=== PATIENT | female | born 1965 | race Hispanic/Latino ===

== ENCOUNTER 2018-10-15 19:32 | Observation (INO) | payer BC, OTHER ==
--- NOTE | 2018-10-15 20:24 | ED PDOC ---
Arrival/HPI - General Chief Complaint: Seizure Time Seen by Provider: 10/15/18 19:35 Historian: Patient - History of Present Illness Narrative History of Present Illness (Text): 10/15/18 19:30 53 year old female, whose past medical history includes Anxiety, Depression, and hypertension, presents to the emergency department after having a seizure at her physician's office. Patient has no physical complaints at this time. Patient denies any seizure activity in the past. Patient states she is under a lot of stress and reports a history of PTSD. Patient denies any fever, chills, chest pain, shortness of breath, nausea, vomiting, diarrhea, urinary symptoms, urinary incontinence, back pain, neck pain, headache, dizziness, SI/HI, visual/auditory hallucination, or any other complaints. PMD: Dr. Echevarria Symptom Onset: Sudden Symptom Course: Resolved Activities at Onset: Light Context: Other (PMD office) Past Medical History - Provider Review Nursing Documentation Reviewed: Yes - Infectious Disease Hx of Infectious Diseases: None - Cardiac Hx Hypertension: Yes - Pulmonary Hx Tuberculosis: No - Neurological HX Cerebrovascular Accident: No Hx Seizures: No - HEENT Hx HEENT Disorder: No Hx Blind: No - Renal Hx Renal Disorder: No - Endocrine/Metabolic Hx Endocrine Disorders: No - Hematological/Oncological Hx Cancer: No - Integumentary Hx Dermatological Disorder: No - Musculoskeletal/Rheumatological Hx Musculoskeletal Disorders: No - Gastrointestinal Hx Gastrointestinal Disorders: No - Genitourinary/Gynecological Hx Sexually Transmitted Diseases: No - Psychiatric Hx Anxiety: Yes Hx Depression: Yes Hx Substance Use: No - Surgical History Hx Arteriovenous Shunt: No - Anesthesia Hx Anesthesia: No Family/Social History - Physician Review Nursing Documentation Reviewed: Yes Family/Social History: No Known Family HX Smoking Status: Never Smoked Hx Alcohol Use: No Hx Substance Use: No Allergies/Home Meds Allergies/Adverse Reactions: Allergies codeine Allergy (Verified 10/15/18 19:45) RASH Home Medications: Home Meds Medication Instructions Recorded Confirmed ALPRAZolam [Xanax] 1 mg PO BID PRN 10/16/18 10/16/18 Desvenlafaxine Succinate [Pristiq 50 mg PO DAILY 10/16/18 10/16/18 ER] LORazepam [Ativan] 2 mg PO BID 10/16/18 10/16/18 Lisdexamfetamine Dimesylate 60 mg PO DAILY 10/16/18 10/16/18 [Vyvanse] hydroCHLOROthiazide [Hydrodiuril] 25 mg PO DAILY 10/16/18 10/16/18 Review of Systems - Physician Review All systems were reviewed & negative as marked: Yes - Review of Systems Constitutional: absent: Fevers, Other (Chills) Respiratory: absent: SOB Cardiovascular: absent: Chest Pain Gastrointestinal: absent: Diarrhea, Nausea, Vomiting Genitourinary Female: absent: Dysuria, Frequency, Hematuria, Other (urinary incontinence) Musculoskeletal: absent: Back Pain, Neck Pain Neurological: Seizure. absent: Headache, Dizziness Psychiatric: absent: Suicidal Ideation (/HI), Other (visual/auditory hallucination) Physical Exam Vital Signs Reviewed: Yes Vital Signs Temp Pulse Resp BP Pulse Ox 10/15/18 20:13 97.7 F 118 H 18 91/60 L 95 Temperature: Afebrile Blood Pressure: Hypotensive Pulse: Tachycardic Respiratory Rate: Normal Appearance: Positive for: Well-Appearing, Non-Toxic, Comfortable Pain Distress: None Mental Status: Positive for: Alert and Oriented X 3 - Systems Exam Head: Present: Atraumatic, Normocephalic Pupils: Present: PERRL Extroacular Muscles: Present: EOMI Conjunctiva: Present: Normal Mouth: Present: Moist Mucous Membranes, Normal Tounge. No: Other (no tongue bite) Neck: Present: Normal Range of Motion Respiratory/Chest: Present: Clear to Auscultation, Good Air Exchange. No: Respiratory Distress, Accessory Muscle Use Cardiovascular: Present: Regular Rate and Rhythm, Normal S1, S2. No: Murmurs Abdomen: No: Tenderness, Distention, Peritoneal Signs Back: Present: Normal Inspection Upper Extremity: Present: Normal Inspection. No: Cyanosis, Edema Lower Extremity: Present: Normal Inspection. No: Edema Neurological: Present: GCS=15, CN II-XII Intact, Speech Normal Skin: Present: Warm, Dry, Normal Color. No: Rashes Psychiatric: Present: Alert, Oriented x 3, Normal Insight, Normal Concentration Medical Decision Making ED Course and Treatment: 10/15/18 19:30 Impression: 53 year old female presents after having a witness seizure at her physician's office. Plan: -- CT head w/o contrast -- Labs -- Urinalysis -- Urine Culture -- Reassess and disposition Prior Visits: Notes and results from previous visits were reviewed. Progress Notes: EKG shows Sinus Tachycardia at 105 BPM. Interpreted by me. EXAM: CT Head without Intravenous Contrast. Electronically signed on Oct 15, 2018 10:20:29 PM EST by: Prince Joshi M.D. IMPRESSION: 1. No acute intracranial abnormality. 10/15/18 22:[address] Echevarria who is aware and agrees with the plan. Accepts patient into his service and request Dr. Whiting for consult tomorrow morning. - Lab Interpretations I have reviewed the lab results: Yes - RAD Interpretation Radiology Orders: 10/15/18 19:45 HEAD W/O CONTRAST [CT] Stat Rides Supervisor: Radiologist - Scribe Statement The provider has reviewed the documentation as recorded by the Mohanibe Blayne Taveras Provider Scribe Attestation: All medical record entries made by the Scribe were at my direction and personally dictated by me. I have reviewed the chart and agree that the record accurately reflects my personal performance of the history, physical exam, medical decision making, and the department course for this patient. I have also personally directed, reviewed, and agree with the discharge instructions and disposition. Disposition/Present on Arrival - Present on Arrival Any Indicators Present on Arrival: No History of DVT/PE: No History of Uncontrolled Diabetes: No Urinary Catheter: No History of Decub. Ulcer: No History Surgical Site Infection Following: None - Disposition Have Diagnosis and Disposition been Completed?: Yes Diagnosis: Seizure Disposition: HOSPITALIZED Disposition Time: 22:20 Condition: STABLE
[2018-10-15 20:27] LABS: BASO # 0.02 K/mm3 (0.0-2.0); BASO % 0.4 % (0.0-3.0); EOS # 0.1 (0.0-0.7); EOS % 2.7 % (1.5-5.0); GRAN # 3.51 (1.4-6.5); GRAN % 68.9 % (50.0-68.0); HEMOGLOBIN 14.1 g/dL (12.0-16.0); LYMPH % 19.8 % (22.0-35.0); MEAN CORPUSCULAR HEMOGLOBIN 31.7 pg (25.0-35.0); MEAN CORPUSCULAR HGB CONC 34.1 g/dl (31.0-37.0); MONO # 0.4 (0.1-0.6); MONO % 8.2 % (1.0-6.0); RBC 4.45 10^6/uL (3.5-6.1); RED CELL DISTRIBUTION WIDTH 13.8 % (11.5-14.5); WHITE BLOOD COUNT 5.1 10^3/uL (4.5-11.0)
[2018-10-15 20:39] LABS: ALB/GLOB RATIO 1.2 (1.1-1.8); ALBUMIN 4.1 g/dL (3.0-4.8); ALT/SGPT 94 U/L (7-56); AST/SGOT 66 U/L (14-36); BLOOD UREA NITROGEN 17 mg/dL (7-21); CALCIUM 9.6 mg/dL (8.4-10.5); GFR NON-AFRICAN AMERICAN 58; LIPASE 162 U/L (23-300)
[2018-10-15 22:08] LABS: BARBITURATES, UR NEGATIVE (NEGATIVE); BENZODIAZEPINES, UR NEGATIVE (NEGATIVE); OPIATES, UR NEGATIVE (NEGATIVE); PHENCYCLIDINE, UR NEGATIVE (NEGATIVE)
[2018-10-15] MEDS: Sodium Chloride 0.9% 1,000 ML IV SCH (23:15)
[2018-10-16 00:36] LABS: PH,URINE 6.5 (4.7-8.0); URINE BILIRUBIN NEGATIVE (NEGATIVE); URINE BLOOD NEGATIVE (NEGATIVE); URINE GLUCOSE (UA) NEGATIVE (NEGATIVE); URINE LEUKOCYTE ESTERASE NEGATIVE Leu/uL (NEGATIVE); URINE PROTEIN NEGATIVE mg/dL (<30 mg/dL); URINE UROBILINOGEN 0.2 E.U./dL (<1 E.U./dL)
[2018-10-16 00:39] LABS: URINE APPEARANCE SL CLOUDY (CLEAR); URINE COLOR YELLOW (YELLOW)
[2018-10-16 04:50] VITALS: BMI 23.2
[2018-10-16 05:19] VITALS: RESP 18; O2SAT 94
--- NOTE | 2018-10-16 08:17 | CARD ---
APPROVED REPORT Date of service: 10/15/2018 EKG Measurement Heart [id number] <Conclusion> Sinus tachycardia Possible Left atrial enlargement Left posterior fascicular block Abnormal ECG
[2018-10-16] MEDS: Sodium Chloride 0.9% 1,000 ML IV SCH ×2 (08:18→17:23)
[2018-10-16] MEDS ORDERED: DESVENLAFAXINE SUCCINATE 50 MG PO SCH (10:15)
[2018-10-16 11:05] LABS: HEMOGLOBIN 12.6 g/dL (12.0-16.0); MEAN CELL VOLUME 92.7 fl (80.0-105.0); MEAN CORPUSCULAR HEMOGLOBIN 31.7 pg (25.0-35.0); MEAN CORPUSCULAR HGB CONC 34.1 g/dl (31.0-37.0); MEAN PLATELET VOLUME 9.6 fl (7.0-11.0); RBC 3.98 10^6/uL (3.5-6.1); RED CELL DISTRIBUTION WIDTH 13.7 % (11.5-14.5)
--- NOTE | 2018-10-16 11:46 | CT ---
Date of service: 10/15/2018 PROCEDURE: CT HEAD WITHOUT CONTRAST. HISTORY: seizure r/o ICH COMPARISON: None available. TECHNIQUE: Axial computed tomography images were obtained through the head/brain without intravenous contrast. Radiation dose: Total exam DLP = 1041.45 mGy-cm. This CT exam was performed using one or more of the following dose reduction techniques: Automated exposure control, adjustment of the mA and/or kV according to patient size, and/or use of iterative reconstruction technique. FINDINGS: HEMORRHAGE: No intracranial hemorrhage. BRAIN: No mass effect or edema. No atrophy or chronic microvascular ischemic changes. VENTRICLES: Unremarkable. No hydrocephalus. CALVARIUM: Unremarkable. PARANASAL SINUSES: Unremarkable as visualized. No significant inflammatory changes. MASTOID AIR CELLS: Unremarkable as visualized. No inflammatory changes. OTHER FINDINGS: None. IMPRESSION: Normal CT of the Head. The preliminary findings for this examination were reported by [facility] at 10:29 p.m. on 10/15/2018. There is concurrence of this report with the preliminary findings.
[2018-10-16 11:47] LABS: ALB/GLOB RATIO 1.1 (1.1-1.8); ALBUMIN 3.2 g/dL (3.0-4.8); ALT/SGPT 73 U/L (7-56); AST/SGOT 84 U/L (14-36); BLOOD UREA NITROGEN 24 mg/dL (7-21); CALCIUM 8.4 mg/dL (8.4-10.5); GFR NON-AFRICAN AMERICAN > 60
[2018-10-16 11:51] LABS: TROPONIN I < 0.01 ng/mL
--- NOTE | 2018-10-16 14:21 | CP.PCM.CON ---
History of Present Illness - History of Present Illness History of Present Illness: 53 year old female with PMH of anxiety, depression, HTN, history of drug use as per PMD was sent to the ED because of an apparent witnessed seizure while in her physician's office. The patient does not recall what happened. The patient states she has never had seizures before. She denies headache or dizziness, no neck pain, no SOB, no cough or rhinorrhea, no sore throat, no abdominal pain, no chest pain, no dysphagia, no diarrhea, no dysuria. Because of history of drug use, Infectious diseases consult is requested to rule out infection. The patient is not volunteering currently any use of drugs but as per PMD, patient has history of drug use. Review of Systems - Review of Systems All systems: reviewed and no additional remarkable complaints except (as per HPI) Past Patient History - Infectious Disease Hx of Infectious Diseases: None - Past Social History Smoking Status: Never Smoked - CARDIAC Hx Hypertension: Yes - PULMONARY Hx Tuberculosis: No - NEUROLOGICAL HX Cerebrovascular Accident: No Hx Seizures: No - HEENT Hx HEENT Problems: No Hx Blind: No - RENAL Hx Chronic Kidney Disease: No - ENDOCRINE/METABOLIC Hx Endocrine Disorders: No - HEMATOLOGICAL/ONCOLOGICAL Hx Cancer: No - INTEGUMENTARY Hx Dermatological Problems: No - MUSCULOSKELETAL/RHEUMATOLOGICAL Hx Musculoskeletal Disorders: No - GASTROINTESTINAL Hx Gastrointestinal Disorders: No - GENITOURINARY/GYNECOLOGICAL Hx Sexually Transmitted Disorders: No - PSYCHIATRIC Hx Anxiety: Yes Hx Depression: Yes Hx Substance Use: No - SURGICAL HISTORY Hx Arteriovenous Shunt: No - ANESTHESIA Hx Anesthesia: No Meds Allergies/Adverse Reactions: Allergies Allergy/AdvReac Type Severity Reaction Status Date / Time codeine Allergy RASH Verified 10/15/18 19:45 - Medications Medications: Current Medications Sodium Chloride (Sodium Chloride 0.9%) 1,000 mls @ 125 mls/hr IV .Q8H MIAN Last Admin: 10/16/18 08:18 Dose: 125 mls/hr Lorazepam (Ativan) 2 mg PO BID MIAN; Protocol Last Admin: 10/16/18 10:35 Dose: 2 mg Non-Formulary Medication (Desvenlafaxine Succinate [Pristiq]) 50 mg PO DAILY MIAN Physical Exam - Constitutional Appears: Chronically Ill - Head Exam Head Exam: NORMAL INSPECTION - Neck Exam Neck exam: Negative for: Lymphadenopathy, Meningismus - Respiratory Exam Respiratory Exam: absent: Rales, Rhonchi - Cardiovascular Exam Cardiovascular Exam: +S1, +S2 - GI/Abdominal Exam GI & Abdominal Exam: Soft. absent: Tenderness Results - Vital Signs Recent Vital Signs: Last Vital Signs Temp 97.8 F 10/16/18 05:18 Pulse 95 H 10/16/18 06:00 Resp 18 10/16/18 05:18 BP 99/62 L 10/16/18 05:18 Pulse Ox 94 L 10/16/18 05:18 - Labs Result Diagrams: 10/16/18 10:45 10/16/18 10:45 Labs: Laboratory Results - last 24 hr 10/15/18 10/15/18 10/15/18 20:21 20:21 20:21 WBC 5.1 RBC 4.45 Hgb 14.1 Hct 41.4 MCV 93.0 MCH 31.7 MCHC 34.1 RDW 13.8 Plt Count 218 MPV 10.0 Gran % 68.9 H Lymph % (Auto) 19.8 L [place] % (Auto) 8.2 H Eos % (Auto) 2.7 Baso % (Auto) 0.4 Gran # 3.51 Lymph # (Auto) 1.0 L [place] # (Auto) 0.4 Eos # (Auto) 0.1 Baso # (Auto) 0.02 Sodium 136 Potassium 3.6 Chloride 101 Carbon Dioxide 25 Anion Gap 14 BUN 17 Creatinine 1.0 Est GFR ( Amer) > 60 Est GFR (Non-Af Amer) 58 Random Glucose 187 H Calcium 9.6 Phosphorus 3.5 Magnesium 1.6 L Total Bilirubin 0.4 AST 66 H ALT 94 H Alkaline Phosphatase 77 Ammonia Total Protein 7.6 Albumin 4.1 Globulin 3.5 Albumin/Globulin Ratio 1.2 Lipase 162 Urine Color Urine Appearance Urine pH Ur Specific [place] Urine Protein Urine Glucose (UA) Urine Ketones Urine Blood Urine Nitrate Urine Bilirubin Urine Urobilinogen Ur Leukocyte Esterase Urine Opiates Screen Urine Methadone Screen Ur Barbiturates Screen Ur Phencyclidine Scrn Ur Amphetamines Screen U Benzodiazepines Scrn U Oth Cocaine Metabols U Cannabinoids Screen Alcohol, Quantitative < 10 10/15/18 10/15/18 10/15/18 20:48 21:35 21:39 WBC RBC Hgb Hct MCV MCH MCHC RDW Plt Count MPV Gran % Lymph % (Auto) [place] % (Auto) Eos % (Auto) Baso % (Auto) Gran # Lymph # (Auto) [place] # (Auto) Eos # (Auto) Baso # (Auto) Sodium Potassium Chloride Carbon Dioxide Anion Gap BUN Creatinine Est GFR ( Amer) Est GFR (Non-Af Amer) Random Glucose Calcium Phosphorus Magnesium Total Bilirubin AST ALT Alkaline Phosphatase Ammonia 21 Total Protein Albumin Globulin Albumin/Globulin Ratio Lipase Urine Color Yellow Urine Appearance Sl cloudy Urine pH 6.5 Ur Specific [place] 1.020 Urine Protein Negative Urine Glucose (UA) Negative Urine Ketones Negative Urine Blood Negative Urine Nitrate Negative Urine Bilirubin Negative Urine Urobilinogen 0.2 Ur Leukocyte Esterase Negative Urine Opiates Screen Negative Urine Methadone Screen Negative Ur Barbiturates Screen Negative Ur Phencyclidine Scrn Negative Ur Amphetamines Screen Positive H U Benzodiazepines Scrn Negative U Oth Cocaine Metabols Negative U Cannabinoids Screen Negative Alcohol, Quantitative 10/16/18 10:45 WBC 5.0 RBC 3.98 Hgb 12.6 Hct 36.9 MCV 92.7 MCH 31.7 MCHC 34.1 RDW 13.7 Plt Count 214 MPV 9.6 Gran % Lymph % (Auto) [place] % (Auto) Eos % (Auto) Baso % (Auto) Gran # Lymph # (Auto) [place] # (Auto) Eos # (Auto) Baso # (Auto) Sodium Potassium Chloride Carbon Dioxide Anion Gap BUN Creatinine Est GFR ( Amer) Est GFR (Non-Af Amer) Random Glucose Calcium Phosphorus Magnesium Total Bilirubin AST ALT Alkaline Phosphatase Ammonia Total Protein Albumin Globulin Albumin/Globulin Ratio Lipase Urine Color Urine Appearance Urine pH Ur Specific [place] Urine Protein Urine Glucose (UA) Urine Ketones Urine Blood Urine Nitrate Urine Bilirubin Urine Urobilinogen Ur Leukocyte Esterase Urine Opiates Screen Urine Methadone Screen Ur Barbiturates Screen Ur Phencyclidine Scrn Ur Amphetamines Screen U Benzodiazepines Scrn U Oth Cocaine Metabols U Cannabinoids Screen Alcohol, Quantitative Assessment & Plan - Assessment and Plan (Free Text) Plan: Assessment Currently no evidence of bacterial infection, no SIRS as well anxiety depression HTN apparent history of drug use as per PMD Plan monitor off antibiotics; will follow up blood, urine cx, CXR will check HIV test follow up Neurology evaluation and recommendations for the seizures; follow up brain MRI results
[2018-10-16] MEDS ORDERED: Magnesium Sulfate 2 GM in Sodium Chloride 0.9% 100 ML IV ONE (14:52)
[2018-10-16] MEDS ORDERED: Magnesium Sulfate 2 GM in 50 ml Water IVPB ONE (15:00)
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
--- NOTE | 2018-10-16 15:50 | CP.PCM.CON ---
History of Present Illness - History of Present Illness History of Present Illness: Neurology Consultation Note: Consult requested by Dr. Echevarria Ms. Jones is a 53-year-old woman with a past medical history of previous IVDA, diagnosed with PTSD with nightmares, HTN, who is on Vyvanse for ADD and takes 2 mg of Ativan Q 12 for anxiety and was at Dr. Echevarria's office, had a syncopal episode with hypotension, followed by 3 seizure-like episodes. The patient was brought to the ED, where she did not have any more seizures. Labs were essentially unremarkable, except she had slightly elevated LFTs and her utox was positive for amphetamine, but negative for benzos. Past Patient History - Infectious Disease Hx of Infectious Diseases: None - Past Social History Smoking Status: Never Smoked - CARDIAC Hx Hypertension: Yes - PULMONARY Hx Tuberculosis: No - NEUROLOGICAL HX Cerebrovascular Accident: No Hx Seizures: No - HEENT Hx HEENT Problems: No Hx Blind: No - RENAL Hx Chronic Kidney Disease: No - ENDOCRINE/METABOLIC Hx Endocrine Disorders: No - HEMATOLOGICAL/ONCOLOGICAL Hx Cancer: No - INTEGUMENTARY Hx Dermatological Problems: No - MUSCULOSKELETAL/RHEUMATOLOGICAL Hx Musculoskeletal Disorders: No - GASTROINTESTINAL Hx Gastrointestinal Disorders: No - GENITOURINARY/GYNECOLOGICAL Hx Sexually Transmitted Disorders: No - PSYCHIATRIC Hx Anxiety: Yes Hx Depression: Yes Hx Substance Use: No - SURGICAL HISTORY Hx Arteriovenous Shunt: No - ANESTHESIA Hx Anesthesia: No Meds Allergies/Adverse Reactions: Allergies Allergy/AdvReac Type Severity Reaction Status Date / Time codeine Allergy RASH Verified 10/15/18 19:45 - Medications Medications: Current Medications Sodium Chloride (Sodium Chloride 0.9%) 1,000 mls @ 125 mls/hr IV .Q8H IMAN Last Admin: 10/16/18 08:18 Dose: 125 mls/hr Magnesium Sulfate (Magnesium Sulfate 2 Gm/50 Ml Water) 2 gm in 50 mls @ 50 mls/hr IVPB ONCE ONE Stop: 10/16/18 15:59 Lorazepam (Ativan) 2 mg PO BID [facility]; Protocol Last Admin: 10/16/18 10:35 Dose: 2 mg Magnesium Oxide (Mag-Ox) 400 mg PO BID [facility] Non-Formulary Medication (Desvenlafaxine Succinate [Pristiq]) 50 mg PO DAILY [facility] Physical Exam - Constitutional Appears: Well - Head Exam Head Exam: ATRAUMATIC, NORMAL INSPECTION, NORMOCEPHALIC - Eye Exam Eye Exam: EOMI, Normal appearance, PERRL Pupil Exam: NORMAL ACCOMODATION, PERRL - ENT Exam ENT Exam: Mucous Membranes Moist, Normal Exam - Neck Exam Neck exam: Positive for: Normal Inspection - Respiratory Exam Respiratory Exam: Clear to Auscultation Bilateral, NORMAL BREATHING PATTERN - Cardiovascular Exam Cardiovascular Exam: REGULAR RHYTHM, +S1, +S2 - GI/Abdominal Exam GI & Abdominal Exam: Normal Bowel Sounds, Soft. absent: Tenderness - Rectal Exam Rectal Exam: Deferred - Extremities Exam Extremities exam: Positive for: normal inspection - Back Exam Back exam: NORMAL INSPECTION - Neurological Exam Neurological exam: Alert, CN II-XII Intact, Normal Gait, Oriented x3, Reflexes Normal - Psychiatric Exam Psychiatric exam: Normal Affect, Normal Mood - Skin Skin Exam: Dry, Intact, Normal Color, Warm Results - Vital Signs Recent Vital Signs: Last Vital Signs Temp 97.7 F 10/16/18 11:54 Pulse 77 10/16/18 11:54 Resp 18 10/16/18 11:54 BP 96/65 L 10/16/18 11:54 Pulse Ox 94 L 10/16/18 05:18 - Labs Result Diagrams: 10/16/18 10:45 10/16/18 10:45 Labs: Laboratory Results - last 24 hr 10/15/18 10/15/18 10/15/18 20:21 20:21 20:21 WBC 5.1 RBC 4.45 Hgb 14.1 Hct 41.4 MCV 93.0 MCH 31.7 MCHC 34.1 RDW 13.8 Plt Count 218 MPV 10.0 Gran % 68.9 H Lymph % (Auto) 19.8 L [place] % (Auto) 8.2 H Eos % (Auto) 2.7 Baso % (Auto) 0.4 Gran # 3.51 Lymph # (Auto) 1.0 L [place] # (Auto) 0.4 Eos # (Auto) 0.1 Baso # (Auto) 0.02 D-Dimer, Quantitative Sodium 136 Potassium 3.6 Chloride 101 Carbon Dioxide 25 Anion Gap 14 BUN 17 Creatinine 1.0 Est GFR ( Amer) > 60 Est GFR (Non-Af Amer) 58 Random Glucose 187 H Calcium 9.6 Phosphorus 3.5 Magnesium 1.6 L Total Bilirubin 0.4 AST 66 H ALT 94 H Alkaline Phosphatase 77 Ammonia Troponin I Total Protein 7.6 Albumin 4.1 Globulin 3.5 Albumin/Globulin Ratio 1.2 Lipase 162 Urine Color Urine Appearance Urine pH Ur Specific [place] Urine Protein Urine Glucose (UA) Urine Ketones Urine Blood Urine Nitrate Urine Bilirubin Urine Urobilinogen Ur Leukocyte Esterase Urine Opiates Screen Urine Methadone Screen Ur Barbiturates Screen Ur Phencyclidine Scrn Ur Amphetamines Screen U Benzodiazepines Scrn U Oth Cocaine Metabols U Cannabinoids Screen Alcohol, Quantitative < 10 10/15/18 10/15/18 10/15/18 20:48 21:35 21:39 WBC RBC Hgb Hct MCV MCH MCHC RDW Plt Count MPV Gran % Lymph % (Auto) [place] % (Auto) Eos % (Auto) Baso % (Auto) Gran # Lymph # (Auto) [place] # (Auto) Eos # (Auto) Baso # (Auto) D-Dimer, Quantitative Sodium Potassium Chloride Carbon Dioxide Anion Gap BUN Creatinine Est GFR ( Amer) Est GFR (Non-Af Amer) Random Glucose Calcium Phosphorus Magnesium Total Bilirubin AST ALT Alkaline Phosphatase Ammonia 21 Troponin I Total Protein Albumin Globulin Albumin/Globulin Ratio Lipase Urine Color Yellow Urine Appearance Sl cloudy Urine pH 6.5 Ur Specific [place] 1.020 Urine Protein Negative Urine Glucose (UA) Negative Urine Ketones Negative Urine Blood Negative Urine Nitrate Negative Urine Bilirubin Negative Urine Urobilinogen 0.2 Ur Leukocyte Esterase Negative Urine Opiates Screen Negative Urine Methadone Screen Negative Ur Barbiturates Screen Negative Ur Phencyclidine Scrn Negative Ur Amphetamines Screen Positive H U Benzodiazepines Scrn Negative U Oth Cocaine Metabols Negative U Cannabinoids Screen Negative Alcohol, Quantitative 10/16/18 10/16/18 10/16/18 10:45 10:45 13:40 WBC 5.0 RBC 3.98 Hgb 12.6 Hct 36.9 MCV 92.7 MCH 31.7 MCHC 34.1 RDW 13.7 Plt Count 214 MPV 9.6 Gran % Lymph % (Auto) [place] % (Auto) Eos % (Auto) Baso % (Auto) Gran # Lymph # (Auto) [place] # (Auto) Eos # (Auto) Baso # (Auto) D-Dimer, Quantitative 201 Sodium 137 Potassium 3.7 Chloride 102 Carbon Dioxide 30 Anion Gap 8 L BUN 24 H Creatinine 0.8 Est GFR ( Amer) > 60 Est GFR (Non-Af Amer) > 60 Random Glucose 98 Calcium 8.4 Phosphorus Magnesium Total Bilirubin 0.2 AST 84 H D ALT 73 H Alkaline Phosphatase 65 Ammonia Troponin I < 0.01 Total Protein 6.2 Albumin 3.2 Globulin 3.0 Albumin/Globulin Ratio 1.1 Lipase Urine Color Urine Appearance Urine pH Ur Specific [place] Urine Protein Urine Glucose (UA) Urine Ketones Urine Blood Urine Nitrate Urine Bilirubin Urine Urobilinogen Ur Leukocyte Esterase Urine Opiates Screen Urine Methadone Screen Ur Barbiturates Screen Ur Phencyclidine Scrn Ur Amphetamines Screen U Benzodiazepines Scrn U Oth Cocaine Metabols U Cannabinoids Screen Alcohol, Quantitative Assessment & Plan (1) Seizure Assessment and Plan: Likely due to benzodiazepine withdrawal and Vyvanse lowering seizure threshold. However, MRI of the brain will be evaluated and EEG will be ordered. The EEG can also be done as an outpatient if the MRI is normal. The patient is now at baseline. I recommend starting a longer acting benzodiazepine to avoid sudden withdrawal. I also recommend stopping, or at least lowering the dose of Vyvance by psychiatry. Will start klonapin 0.5 mg Q12 to be titrated up or down by psychiatry as needed. Thank you for this consultation. Status: Acute
[2018-10-16 17:23] VITALS: BP 124/72; TEMP 97.6
--- NOTE | 2018-10-16 17:23 | RAD ---
Date of service: 10/16/2018 HISTORY: rule out pneumonia COMPARISON: No prior. FINDINGS: LUNGS: No active pulmonary disease. PLEURA: No significant pleural effusion identified, no pneumothorax apparent. CARDIOVASCULAR: No aortic atherosclerotic calcification present. Normal cardiac size. No pulmonary vascular congestion. OSSEOUS STRUCTURES: No significant abnormalities. VISUALIZED UPPER ABDOMEN: Normal. OTHER FINDINGS: None. IMPRESSION: No active disease.
[2018-10-16] MEDS ORDERED: Magnesium Oxide 400 mg Tab UD PO SCH (18:00)
[2018-10-16 19:10] VITALS: PULSE 79
--- NOTE | 2018-10-17 01:07 | CON ---
DATE: 10/16/2018 HISTORY OF PRESENT ILLNESS: The patient is a 53-year-old single female with a psychiatric history of depression, anxiety, currently in psychiatric treatment with Dr. Miracle Rivers, reportedly compliant with prescribed medications of Minipress p.r.n., Pristiq, Vyvanse, and Ativan, at least one prior hospitalization in 01/2011, positive history of substance abuse per review of [facility] records; these include opiate, marijuana, and alcohol, who presents to the ER on 10/15/2018, after having a seizure in her physician's office. She was admitted to medical floor and Psychiatry was consulted for anxiety. I met with the patient at bedside and she is well oriented to current situation, month, year, and location. The patient reports that she has off and on depression; however, feels like she is stable on current medications. She denies any recent drug use, appears minimized her alcohol use, it is unclear if the seizure was secondary to alcohol withdrawal. The patient reports that she has been anxious and has trouble in controlling her anxiety; however, has been treated with the help of Dr. Rivers who she has been seeing since 2016. The patient is not psychotic. She has not been in any major behavioral issues on the medical floor. There appears to be no acute psychiatric issues at this time, although the patient should be evaluated obviously for substance dependency. She denies any suicidal thoughts, homicidal thoughts, and plans to follow up with her outpatient psychiatrist when she is medically cleared. Vital signs and labs were reviewed. PSYCHIATRIC MEDICATIONS: Given on the unit include Ativan 2 mg p.o. b.i.d. as well as Pristiq 50 mg daily. PSYCHIATRIC HISTORY: As noted, the patient has one prior psychiatric admission in 01/2011. The patient has been in treatment with Dr. Miracle Rivers and is prescribed and compliant with Minipress p.r.n., Pristiq, Vyvanse, and Ativan. The patient reports that she has been in treatment with Dr. Miracle Rivers since 2017 when she went on disability. Apparently, the patient needed to go on disability after doctor her. She used to work as a pharmacy rep. She denies any history of suicide attempts. SOCIAL HISTORY: The patient denies any kids. She lives in her own apartment in [place]; however, she stays with her boyfriend most of the time, and she is on disability. IMPRESSION: Depression and anxiety by history; panic disorder; generalized anxiety disorder, rule out posttraumatic stress disorder; history of alcohol use disorder, rule out alcohol withdrawal seizure and general alcohol withdrawal, likely the patient has substance-induced mood disorder as the patient is still drinking excessively. RECOMMENDATIONS: The patient should continue with psychiatric medications as prescribed by Dr. Rivers, though Vyvanse is not indicated at this time and should be reconsidered as part of her psychiatric outpatient regimen due to her history of seizures. Medical team should treat the patient for possible alcohol withdrawal and alcohol withdrawal seizures in that respect and provide information about substance treatment programs and referrals as well. The patient is not an acute danger to herself or others. Psychiatry will sign off at this time. Elva Johnson MD
--- NOTE | 2018-10-17 01:53 | HP ---
DATE OF EXAM: 10/16/2018 MAIN REASON FOR ADMISSION: Syncope, seizure. HISTORY OF PRESENT ILLNESS: This is a 53-year-old female with history of drug user, heroin use, on multiple medications of psych including Ativan, Xanax, and Vyvanse, has been seen by psychiatrist and followed up with him. She also does have antipsychotic and antidepressant drug, Pristiq ER 50 mg daily. She also takes Avapro for blood pressure; however, she is not taking it for 2 days. She came in to the office initially and her blood pressure was high, it was 130/100-105 and heart rate 120. The patient was talking and almost suddenly standing up and all of a sudden she had a syncope. She went and sit down on the chair and then she started having tonic-clonic movements with some felt like minute then followed by loss of confusion and loss of consciousness. She regained her consciousness quick, she was kind of confused, disoriented, and then got better. Her blood pressure at that time and her pulse was diminished and she looks pale. Her leg elevated. She was comfortable and then it happened again. The patient was seen by EMS and refused to go, then it happened again 2-3 times while she was in the office and then she decided to go by EMS to the emergency room where she found she has hypotension, blood pressure was 85 from 130/105, went down to systolic 80s, 89/57, 93/57, and she was tachycardic. She is alert, awake, and oriented x3 in the emergency room. She has no nausea or vomiting. No chest pain. No dyspnea. No swelling in her legs. No other complaints. No fever. No chills. She denied any history of IV drug use recently and she quitting during that for time now. PAST MEDICAL HISTORY: As above. She does have history of depression and anxiety as she uses the medications for ADHD. She also has hypertension. She does have history of IV drug use. Never had endocarditis or any infections. SOCIAL HISTORY: She is unmarried. She lives with her boyfriend in [place]. No smoking. 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 FAMILY HISTORY: Noncontributory, history of coronary artery disease, but no other history. Her brother is an ER physician . REVIEW OF SYSTEMS: Other than an anxiety, panic attack, posttraumatic stress disorder. She denies any history of trauma before final psychological trauma that why she sees Psychiatry for posttraumatic stress disorder, panic attacks, and generalized anxiety disorder. PHYSICAL EXAMINATION: VITAL SIGNS: When she came in; her temperature 97.8, heart rate 99, blood pressure 93/57, respiratory rate 22, and saturation 95% on room air. HEAD AND NECK: Normal. No JVD. No thyromegaly. CHEST: Clear bilateral. CARDIAC: First sound and second sound normal. No murmur, rub, or gallop. ABDOMEN: Soft and nontender. EXTREMITIES: No edema. NEUROLOGIC: Normal. SKIN: Old scar from history of IV drug use in the antecubital fossa, but otherwise no fresh sites of IV injections. LABORATORY DATA: CBC; white count 5.1, hemoglobin 14.1, hematocrit 41.4, and platelets 218. Chemistry; sodium 136, potassium 3.6, chloride 101, bicarb 25, BUN 17, creatinine 1, and blood sugar 187. Magnesium 1.6. AST 66, ALT FREEDOM test, which is negative. She has a toxicology positive for amphetamine, no benzodiazepine. No alcohol. No opioids. CT head was negative. EKG was sinus tachy with left atrial enlargement, possibly left severe fascicular block. IMPRESSION: A 53-year-old female with history of being on benzodiazepines for chronic anxiety, posttraumatic stress disorder, panic attacks, however, the patient came in. She was hypertensive initially, although when she become hypotensive, she had a syncope followed by seizure activity, tonic-clonic x3. The patient came to the emergency room for evaluations. Her laboratories are normal except for amphetamine and no benzodiazepine in the urine. No other drugs. EKG is normal. Her saturation 95-94%. The patient denied any other complaints. No fever. 1. Seizure activity recurrence. 2. Hypotension. PLAN: 1. To get blood cultures x2, ID consult what is causing her hypertension. 2. Get cardiac enzymes and troponin. 3. We will give the patient IV fluids. We will keep the patient for observation 24 hours. Also get a d-dimer for any clots or any obstructive problem in the pulmonary situation. We will also presume Ativan possibility of benzodiazepine withdrawal could be and the possibility of a stimulant causing seizures. 4. Anticardiac arrhythmia, that resulting hypotension; however, the patient is still hypotensive, we will start on IV fluids. Blood pressure runs low normal, heart rate 95. We will continue IV fluids and get a Cardiology to see her. ID comes to see her. We will consider Pulmonary if d-dimer is negative, if positive. Continue current therapy. Follow up clinically. Hernan Echevarria MD
[2018-10-17] MEDS ORDERED: DESVENLAFAXINE SUCCINATE 50 MG PO SCH (10:00)
--- NOTE | 2018-10-17 14:52 | MRI ---
Date of service: 2018-10-16 14:20:15 PROCEDURE: MRI BRAIN WITHOUT CONTRAST HISTORY: Multiple seizures COMPARISON: Comparison made with prior CT scan brain 10/15/2017. TECHNIQUE: Multiplanar, multisequence MR images of the brain were obtained without intravenous contrast enhancement. FINDINGS: HEMORRHAGE: No acute parenchymal, subarachnoid nor extra-axial hemorrhage. No evidence of hemosiderin deposition is identified on gradient echo weighted sequence. DWI: No evidence of an acute or early subacute infarction seen on diffusion imaging.. BRAIN PARENCHYMA: There are a few nonspecific tiny focal areas of increased T2 signal scattered about the subcortical white matter both cerebral hemispheres too small to characterize and felt to be incidental and likely unrelated to this patient's current clinical status. No evidence of mesial temporal sclerosis. Mild central volume loss. VENTRICLES: No obstructive hydrocephalus. CRANIUM: Calvarium appears grossly unremarkable. ORBITS: Orbits and contents grossly unremarkable. PARANASAL SINUSES/MASTOIDS: Minor mucosal thickening present within all the paranasal sinuses. VASCULAR SYSTEM: Visualized major vascular flow voids at skull base patent. OTHER FINDINGS: None. IMPRESSION: No evidence of acute intracranial hemorrhage or infarct. There are a few nonspecific tiny focal areas of increased T2 signal scattered about the subcortical white matter both cerebral hemispheres too small to characterize and felt to be incidental and likely unrelated to this patient's current clinical status. No evidence of mesial temporal sclerosis. Mild central volume loss. Minor mucosal thickening seen within all the paranasal sinuses.
== END 2018-10-16 20:45 | disposition left against medical advice (07) ==
LOC: ED 19:32 → ERH 22:41 → 2RSO 10-16 01:02
PROVIDERS: ADMIT Internal Medicine; ATTEND Internal Medicine
DX: R56.9 Unspecified convulsions (principal); I10 Essential (primary) hypertension; F41.0 Panic disorder [episodic paroxysmal anxiety]; F41.1 Generalized anxiety disorder; F32.89 Other specified depressive episodes; F13.239 Sedative, hypnotic or anxiolytic dependence with withdrawal, unspecified; F17.200 Nicotine dependence, unspecified, uncomplicated; F43.10 Post-traumatic stress disorder, unspecified; F90.9 Attention-deficit hyperactivity disorder, unspecified type; I44.5 Left posterior fascicular block; Z88.5 Allergy status to narcotic agent; F19.94 Other psychoactive substance use, unspecified with psychoactive substance-induced mood disorder
CPT/HCPCS: 36415; 70450; 70551; 71045; 80053; 81003; 81025; 82140; 83690; 83735; 84100; 84484; 85025; 85027; 85378; 87040; 87086; 87389; 93005; 96374; 99285; G0378; G0480; J2060; J7030